=== PATIENT | female | born 1955 | race Caucasian/White ===

== ENCOUNTER → 2017-03-17 | Outpatient (CLI) | payer MEDICARE ==
[~2017-03-17] MED LIST: ALPRAZOLAM0.5 MG PO; ASPIRIN325 MG PO; ATENOLOL25 MG PO; ATENOLOL50 MG PO; Aspirin PO; CALCIUM CITRAT1 EAC3 PO; CLONAZEPAM0.5 MG PO; CYMBALTA30 MG PO; CYMBALTA60 MG PO; FAMOTIDINE20 MG PO; GABAPENTIN100 MG PO; HYDROMORPHONE HC2 MG PO; LEVEMIR100 UNIT/1 SC; LEVIMER SC; MIRTAZAPINE15 MG PO; MORPHINE SULFAT15 M1 PO; MORPHINE SULFAT15 MG PO; MORPHINE SULFATE PO; NEXIUM20 MG PO; NOVOLOG100 UNITS1 SC; REMERON PO; TURMERIC PO
--- NOTE | 2017-03-18 17:46 | Diagnostic Imaging Report ---
PROCEDURE: CT CHEST WITHOUT CONTRAST CT scan of the chest WITHOUT intravenous contrast, using standard protocol. TECHNIQUE: The chest was scanned utilizing a multidetector helical scanner from the apex to the level of the adrenal glands. No IV contrast. Coronal and sagittal multiplanar reformations were obtained. COMPARISON: CT of the chest from 12/10/2015 and 05/25/2016 INDICATIONS: NODULE FINDINGS: Lines/tubes: None. Lungs and Airways: 4 mm nodule in the left lower lobe (series 3, image 67) is unchanged since at least 12/10/2015. There is a new cluster of many tree in bud nodules in the superior segment of the left lower lobe with individual nodules measuring up to 3-4 mm (series 3, image 51 and 54). Subsegmental atelectasis and scarlike opacities in the lung bases, lingula, and right middle lobe. Pleura: The pleural spaces are clear. Heart and mediastinum: The thyroid gland is normal. No significant mediastinal, hilar or axillary lymphadenopathy is seen. Normal heart size. No pericardial effusion. Severe atherosclerotic calcifications of the coronary arteries. Soft tissues: Normal. Abdomen: Limited views of the upper abdomen demonstrate postsurgical changes to the stomach and right retroperitoneum. Partially visualized left adrenal nodule is stable but cannot be further characterized on this examination. Diffuse fatty infiltration of the liver. Bones: Multilevel degenerative changes of the thoracic spine. IMPRESSION: 1. Previously described 4 mm nodule in the left lower lobe is unchanged since at least 12/10/2015, consistent with a benign etiology. 2. However, there are new clusters of tree in bud nodules in the superior segment of the left lower lobe, measuring up to 3-4 mm. The distribution suggests an infectious or inflammatory etiology. Consider followup CT in 6-12 months to ensure resolution. Dictated by: Rolando Pinto M.D. on 03/18/2017 at 17:55 Electronically approved by: Rolando Pinto M.D. on 03/18/2017 at 17:55
== END ==
LOC: CT 11:17
PROVIDERS: ATTEND Internal Medicine Pulmonary Disease
DX: R91.1 Solitary pulmonary nodule (principal)
CPT/HCPCS: 71250